=== PATIENT | male | born 1970 | race Two or more races ===

== ENCOUNTER 2017-12-13 22:46 | Emergency (ER) | payer OTHER ==
[2017-12-14] LABS: ABS Basophils 0 10^3/ul (0-0.2); ABS Eosinophils 0 10^3/ul (0-0.6); ABS Lymphocytes 1.8 10^3/ul (1.0-4.8); ABS Monocytes 0.8 10^3/ul (0-0.8); ABS Neutrophils 6.2 10^3/ul (1.5-7.7); ABS Nucleated RBC 0 10^3/ul; Eosinophil % 0.5 % (0-6); Hematocrit 43 % (42-52); Hemoglobin 15.1 g/dl (14.0-18.0); Lymphocyte % 20.2 % (25-47); Mean Corpuscular HGB Conc 35 g/dl (31-36); Mean Corpuscular Hemoglobin 32 pg (27-31); Mean Corpuscular Volume 91 fL (80-94); Mean Platelet Volume 7.6 um3 (7.4-10.4); Nucleated Red Blood Cells % 0.1; Platelet Count 305 10^3/ul (150-450); Red Blood Count 4.75 10^6/ul (4.0-5.4); Red Cell Distribution Width 13 % (10.5-15); White Blood Count 8.8 10^3/ul (3.5-10.8)
[2017-12-14] MEDS ORDERED: Divalproex DR TAB(*) 500 MG PO ONE (01:18)
[2017-12-14] MEDS ORDERED: NS 0.9% 1000 ML* 1,000 ML IV ONE (01:23)
[2017-12-14] MEDS ORDERED: Multivitamins/Minerals TAB PO ONE (01:23)
[2017-12-14 02:32] VITALS: BP 108/71
--- NOTE | 2017-12-14 06:06 | ED ---
Allegra Díaz Emily, scribed for Jose D Smith MD on 12/13/17 at 2330 . Complex/Multi-Sys Presentation - HPI Summary HPI Summary: This patient is a 47 year old M BIBA to [facility] accompanied by correctional officers with a chief complaint of seizure. Per EMS, pt had a witnessed seizure by staff at correctional facility. The patient rates the pain 0/10 in severity. Symptoms aggravated by nothing. Symptoms alleviated by nothing. Patient reports neck burning, muscle spasms, nausea, vomiting, and fever. They report a witnessed seizures, but the correctional officers are not aware of the details. Pt reports being on a food strike for 5 days because he wants to . Pt reports that he takes seizure medications. 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 Epilectic for 15 minutes, postictal for 40 minutes. The correctional officers report a witnessed seizure, but are not aware of the details. - History Of Current Complaint Chief Complaint: EDSeizure Time Seen by Provider: 12/13/17 22:50 Hx Obtained From: Patient Onset/Duration: Sudden Onset, Lasting Hours, Resolved Timing: Intermittent, Lasting: Severity Currently: Mild Aggravating Factor(s): Nothing Alleviating Factor(s): Nothing Associated Signs And Symptoms: Positive: Other - Patient reports neck burning , muscle spasms, nausea, vomiting, and fever. - Allergies/Home Medications Allergies/Adverse Reactions: Allergies Allergy/AdvReac Type Severity Reaction Status Date / Time No Known Allergies Allergy Verified 12/13/17 23:16 PMH/Surg Hx/FS Hx/Imm Hx Previously Healthy: No EENT History: Denies: Hx Deafness Neurological History: Reports: Hx Seizures Infectious Disease History: No Infectious Disease History: Denies: Traveled Outside the [place] in Last 30 Days - Family History Known Family History: Positive: Unknown - Social History Alcohol Use: None Substance Use Type: Reports: None Smoking Status (MU): Never Smoked Tobacco Review of Systems Positive: Fever Positive: Vomiting, Nausea Positive: Other - Positive muscle spasms and "burning" neck All Other Systems Reviewed And Are Negative: Yes Physical Exam - Summary Physical Exam Summary: Appearance: Well appearing, no pain distress Skin: warm, dry, reflects adequate perfusion, scar on right neck Head/face: normal Eyes: EOMI, Anisocoria where his right pupil smaller than left. ENT: normal, mucous membranes moist Neck: supple, non-tender Respiratory: breath sounds present, scattered basilar wheezes Cardiovascular: RRR, pulses symmetrical Abdomen: non-tender, soft Bowel Sounds: present Musculoskeletal: strength/ROM intact, Intermittent spasming of his trapezius and anterior neck bilaterally, thats distractable. Neuro: normal, sensory motor intact, A&Ox3, He seems a little slow cognitively, but unable to completely tell due to language barrier. Triage Information Reviewed: Yes Vital Signs On Initial Exam: Initial Vitals BP 120/90 12/13/17 22:54 Vital Signs Reviewed: Yes Diagnostics - Vital Signs Vital Signs Temp Pulse Resp BP Pulse Ox 12/13/17 23:05 98.7 F 98 18 112/95 100 12/13/17 23:00 94 17 112/95 99 12/13/17 22:56 89 11 99 12/13/17 22:54 120/90 - Laboratory Lab Results: Lab Results 12/13/17 12/13/17 12/13/17 Range/Units 11:51 11:51 11:51 WBC 8.8 (3.5-10.8) 10^3/ul RBC 4.75 (4.0-5.4) 10^6/ul Hgb 15.1 (14.0-18.0) g/dl Hct 43 (42-52) % MCV 91 (80-94) fL MCH 32 H (27-31) pg MCHC 35 (31-36) g/dl RDW 13 (10.5-15) % Plt Count 305 (150-450) 10^3/ul MPV 7.6 (7.4-10.4) um3 Neut % (Auto) 70.4 (38-83) % Lymph % (Auto) 20.2 L (25-47) % [place] % (Auto) 8.6 H (0-7) % Eos % (Auto) 0.5 (0-6) % Baso % (Auto) 0.3 (0-2) % Absolute Neuts (auto) 6.2 (1.5-7.7) 10^3/ul Absolute Lymphs (auto) 1.8 (1.0-4.8) 10^3/ul Absolute Monos (auto) 0.8 (0-0.8) 10^3/ul Absolute Eos (auto) 0 (0-0.6) 10^3/ul Absolute Basos (auto) 0 (0-0.2) 10^3/ul Absolute Nucleated RBC 0 10^3/ul Nucleated RBC % 0.1 Sodium 139 (139-145) mmol/L Potassium 3.9 (3.5-5.0) mmol/L Chloride 104 (101-111) mmol/L Carbon Dioxide 27 (22-32) mmol/L Anion Gap 8 (2-11) mmol/L BUN 10 (6-24) mg/dL Creatinine 0.97 (0.67-1.17) mg/dL Est GFR ( Amer) 106.7 (>60) Est GFR (Non-Af Amer) 83.0 (>60) BUN/Creatinine Ratio 10.3 (8-20) Glucose 97 (70-100) mg/dL Calcium 9.7 (8.6-10.3) mg/dL Phosphorus 2.6 (2.5-5.0) mg/dL Magnesium 2.2 (1.9-2.7) mg/dL Total Bilirubin 0.60 (0.2-1.0) mg/dL AST 18 (13-39) U/L ALT 14 (7-52) U/L Alkaline Phosphatase 72 (34-104) U/L Total Protein 7.5 (6.4-8.9) g/dL Albumin 4.4 (3.2-5.2) g/dL Globulin 3.1 (2-4) g/dL Albumin/Globulin Ratio 1.4 (1-3) Valproic Acid 53.0 (50-100) mcg/mL Result Diagrams: 12/13/17 11:51 12/13/17 11:51 Lab Statement: Any lab studies that have been ordered have been reviewed, and results considered in the medical decision making process. - CT Brain CT CT Interpretation Completed By: ED Physician - Brain CT reveals, per radiologist , encephalomalacia in the right frontal lobe suggesting previous infarction, or trauma. Correlation with history and comparison with prior studies is recommended. ED physician has reviewed this radiology report. Re-Evaluation - Re-Evaluation First Eval Re-Evaluation Time: 01:20 Change: Unchanged Comment: Discussed plan of care with patient and correctional officers Complex Multi-Symp Course/Dx Course Of Treatment: We are fairly limited here in that nobody present can describe the alleged seizure activity leading to presentation. He does have known organic dz as evidenced by abnl MRI. CT today c/w same R sided stroke or residual of trauma. Depakote level is low normal, extra dose given here. There is no tongue injury, loss of continence. More importantly, there is no elevation of plts or WBC after alleged 10min generalized seizure. Prolactin unavailable in reasonable amt of time. Pt hydrated and watched here. He has what appears to be voluntary tic or spasm of the ant neck that extinguishes when talking to me or distracted. He doesnt do this while sleeping but immediately returns to this after being woken up. D/C to [facility] to f/u with providers there. Encouraged to eat/drink. Pt alleges to not have eaten/drank in 5 days, but there are no electrolyte abnormalities nor derrangement of VS or abnl mucous membranes. - Diagnoses Differential Diagnoses/HQI/PQRI: Closed Cranial Trauma, Metabolic Abnormality, Other - metabolic derangement, seizure, status epilep. Provider Diagnoses: Epilepsy, Seizure Discharge - Sign-Out/Discharge Documenting (check all that apply): Discharge - Discharge to [facility] - Discharge Plan Condition: Improved Disposition: LAW ENFORCEMENT/COURT Patient Education Materials: Epilepsy (ED) Print Language: PERSIAN Referrals: Nuno GARCIA,Morgan Melo [Primary Care Provider] - Additional Instructions: Eat and drink on a regular basis or you will be more at risk for seizure. Seizures can cause brain impairment and permanent disability. Return if worse or other concerns. - Billing Disposition and Condition Condition: IMPROVED Disposition: LAW The documentation as recorded by the Allegra martinez Emily accurately reflects the service I personally performed and the decisions made by me, Jose D Smith MD.
--- NOTE | 2017-12-14 07:47 | RAD ---
HISTORY: Seizure, history of old right parietal infarct COMPARISONS: None relevant available at the time of dictation TECHNIQUE: Multiple contiguous axial CT scans were obtained of the head without intravenous contrast. FINDINGS: HEMORRHAGE/INFARCT: There is no hemorrhage or acute infarct. MASSES/SHIFT: There is no mass or shift. EXTRA-AXIAL SPACES: There are no extra-axial fluid collections. SULCI AND VENTRICLES: The sulci and ventricles are normal in size and position for the patient's stated age. CEREBRUM: There is right frontal encephalomalacia consistent with remote infarct. BRAINSTEM: There are no focal parenchymal abnormalities. CEREBELLUM: There are no focal parenchymal abnormalities. VESSELS: The vessels are grossly normal. PARANASAL SINUSES: The paranasal sinuses are clear. ORBITS: The orbits are unremarkable. BONES AND SOFT TISSUE: No bone or soft tissue abnormalities are noted. OTHER: None IMPRESSION: 1. NO ACUTE INTRACRANIAL PATHOLOGY. 2. REMOTE RIGHT FRONTAL INFARCT.
== END 2017-12-14 03:27 ==
LOC: ED 22:46
DX: G40.909 Epilepsy, unspecified, not intractable, without status epilepticus (principal); R11.2 Nausea with vomiting, unspecified; R50.9 Fever, unspecified
CPT/HCPCS: 36415; 70450; 80053; 80164; 83735; 84100; 85025; 99283; A9270-GY